=== PATIENT | male | born 1955 | race Caucasian/White ===

== ENCOUNTER → 2023-07-05 13:56 | Outpatient (REF) | payer MEDICARE, SELFPAY | LOC: DHCBS MAIN 13:56 | PROVIDERS: ATTENDING PHYSICIAN Internal Medicine Cardiovascular Disease; FAMILY PHYSICIAN Family Medicine | DX: R94.31 Abnormal electrocardiogram [ECG] [EKG] (principal) | CPT/HCPCS: 93306 ==